=== PATIENT | female | born 1985 | race Caucasian/White ===

== ENCOUNTER 2022-03-09 16:08 | Emergency (ER) | payer OTHER ==
[~2022-03-09] VITALS: Ht 157.4 cm; Wt 57.2 kg
[~2022-03-09 16:08] MED LIST: AMOXICILLIN500 MG PO; ANAPROX DS550 MG PO; VIBRA-TAB100 MG PO
[2022-03-09] MEDS ORDERED: PENICILLIN-VK500 MG PO (17:45)
== END 2022-03-09 18:07 | disposition home or self-care (01) ==
LOC: ED 16:08
DX: K08.89 Other specified disorders of teeth and supporting structures (principal)

== ENCOUNTER 2022-12-07 16:14 | Emergency (ER) | payer SELFPAY ==
[~2022-12-07] VITALS: Ht 157.4 cm; Wt 56.7 kg
[~2022-12-07 16:14] MED LIST changes: +PENICILLIN-VK500 MG PO
[2022-12-07] MEDS ORDERED: PENICILLIN-VK500 MG PO (16:40)
== END 2022-12-07 17:04 | disposition home or self-care (01) ==
LOC: ED 16:14
DX: K08.89 Other specified disorders of teeth and supporting structures (principal); Z98.890 Other specified postprocedural states; Z87.891 Personal history of nicotine dependence